=== PATIENT | male | born 1975 | race African-American/Black ===

== ENCOUNTER 2016-06-26 11:02 | Emergency (ER) | payer OTHER, MEDICARE ==
[2016-06-26 11:44] VITALS: TEMP 97.9; BMI 5073.3
[2016-06-26] MEDS ORDERED: HYDROCODONE 5 MG/ACETAMIN 325 MG TAB PO ONE (11:48)
[2016-06-26] MEDS ORDERED: CYCLOBENZAPRINE 10 MG TAB PO ONE (11:48)
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
[2016-06-26 13:19] VITALS: BP 144/87; PULSE 92
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
== END 2016-06-26 13:28 | disposition home or self-care (01) ==
LOC: EDMC 11:02
DX: S43.401A Unspecified sprain of right shoulder joint, initial encounter (principal); S06.0X1A Concussion with loss of consciousness of 30 minutes or less, initial encounter; S16.1XXA Strain of muscle, fascia and tendon at neck level, initial encounter; S39.012A Strain of muscle, fascia and tendon of lower back, initial encounter; S29.019A Strain of muscle and tendon of unspecified wall of thorax, initial encounter; V43.62XA Car passenger injured in collision with other type car in traffic accident, initial encounter
CPT/HCPCS: 70450; 72050; 72070; 72110; 73030; 99283; J3490

== ENCOUNTER 2016-07-11 13:16 | Emergency (ER) | payer OTHER, MEDICARE ==
[2016-07-11 13:42] VITALS: TEMP 97.5
[2016-07-11 13:43] VITALS: BMI 36.2
[2016-07-11] MEDS ORDERED: OXYCODONE HCL 5 MG TABLET PO ONE (13:48)
[2016-07-11] MEDS ORDERED: PREDNISONE 20 MG TAB PO ONE (13:48)
[2016-07-11] MEDS ORDERED: DIAZEPAM 10 MG/2 ML TUBEX IV ONE (13:48)
[2016-07-11] MEDS ORDERED: DIAZEPAM 5 MG TAB PO ONE (13:50)
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
[2016-07-11 14:21] VITALS: BP 164/95; PULSE 89
== END 2016-07-11 14:06 | disposition home or self-care (01) ==
LOC: EDMC 13:16
DX: M54.9 Dorsalgia, unspecified (principal)
CPT/HCPCS: 99283; J3490

== ENCOUNTER 2016-07-17 17:41 | Emergency (ER) | payer OTHER, MEDICARE ==
[2016-07-17 18:12] VITALS: TEMP 98.7; BMI 35.5
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
[2016-07-17 19:14] VITALS: BP 150/82; PULSE 94
== END 2016-07-17 19:13 | disposition home or self-care (01) ==
LOC: ED 17:41 → EDMC 19:13
DX: M54.5 Low back pain (principal)
CPT/HCPCS: 99282